=== PATIENT | female | born 1950 | race African-American/Black ===

== ENCOUNTER 2016-07-17 10:28 | Emergency (ER) | payer SELFPAY ==
[2016-07-17] MEDS ORDERED: Lidocaine 1% 20 ML MDV ONE (12:09)
--- NOTE | 2016-07-17 12:49 | ERRECORD ---
[facility] EMERGENCY RECORD HPI ABSCESS (11:29 JLOY) CHIEF COMPLAINT: Patient presents for evaluation of swelling, Patient presents for evaluation of pain, Patient presents for evaluation of Pt with right buttock pain and swelling for 'a few days'. Had a left axillary abscess in the past. Slight chills the last day or two. HISTORIAN: History provided by patient. LOCATION: Symptoms are localized. QUALITY: Pain is dull in nature. TIME COURSE: Gradual onset of symptoms, Symptoms are worsening. ASSOCIATED WITH: Associated with chills, No associated drainage, No associated fever, No associated nausea, No associated proximal streaking, Associated with warmth. COMPLICATING FACTORS: Complicating factors for wound healing include:, patient with history of diabetes. EXACERBATED BY: Patient's condition exacerbated by nothing. RELIEVED BY: Patient's condition relieved by nothing. TETANUS: Tetanus status up to date. ROS (11:30 JLOY) CONSTITUTIONAL: Historian reports chills, denies fever. ENT: Historian denies rhinorrhea, denies sore throat. RESPIRATORY: Historian denies cough, denies shortness of breath. GI: Historian denies abdominal pain, denies nausea, denies vomiting. SKIN: Historian reports cellulitis, reports induration, reports rash. NEUROLOGIC: Historian denies dizziness, denies headache, denies paralysis, denies paresthesias, denies sensory changes. PAST MEDICAL HISTORY MEDICAL HISTORY: Notes: as listed, Flu vaccine up to date, Date of immunization: JUN 2015, Past medical history includes history of diabetes, Type II, diet controlled, Past medical history includes history of hypertension, which has been treated,. (11:05 GHIA) FEMALE SURGICAL HISTORY: Patient has no surgical history, Patient has no surgical history. (11:05 GHIA) PSYCHIATRIC HISTORY: No previous psychiatric history. (11:05 GHIA) SOCIAL HISTORY: Social History includes lives alone, Patient denies alcohol use, Patient denies drug use, Patient has no smoking history, Patient denies alcohol use, Patient denies drug use, Patient has no smoking history,. (11:05 GHIA) NOTES: Nursing records reviewed, Agree with nursing records. (11:32 JLOY) KNOWN ALLERGIES No Known Drug Allergies &a-1R&a+25V*p+0X*[id number]*c202B*c15G*c2P*p-0X&a-25V&a+1R Name: Louann Acuna : 1950 F66 MedRec: [id number] AcctNum: [id number] Prepared: SunJul 17, 2016 12:41 by Interface Page 1 of 3 pMD [facility] EMERGENCY RECORD CURRENT MEDICATIONS No recorded medications VITAL SIGNS VITAL SIGNS: Pulse: 89, Resp: 19, Temp: 100.0 (Oral), Pain: 9, O2 sat: 98, Time: 07/17/2016 11:03. (11:03 GHIA) BP: 208/88, Time: 07/17/2016 11:05. (11:05 GHIA) BP: 150/51, Pulse: 79, Resp: 17, Pain: 9, O2 sat: 100 on RA, Time: 07/17/2016 12:16. (12:16 GHIA) PHYSICAL EXAM (11:31 [facility]) CONSTITUTIONAL: Vital signs reviewed, Patient appears non toxic, Patient alert and oriented to person, place and time. EYES: Eye exam included findings of eyelids normal to inspection, Pupils equally round and reactive to light, Conjunctiva normal. ENT: Mouth exam normal, mucous membranes moist. RESPIRATORY CHEST: Respiratory exam included findings of no respiratory distress, Breath sounds clear, No wheezing, No rales, No rhonchi, Chest exam included findings of chest movement symmetrical. CARDIOVASCULAR: Cardiovascular exam included findings of heart rate regular rate and rhythm, Heart sounds normal. NEURO: [place] coma scale 15, Neuro exam findings include patient oriented to person, place and time, Speech normal. SKIN: Skin exam included findings of skin warm, dry, and normal in color, Right buttock with area on more lateral aspect with induration, erythema, warmth, and ttp. No drainage. Tense without fluctuance. Diameter few cm across with poorly defined border. PSYCHIATRIC: Normal affect. MEDICATION ADMINISTRATION SUMMARY Drug Name: Bactrim DS, Dose Ordered: 1 tab(s), Route: Oral, Status: Ordered, Time: 12:35 07/17/2016, Drug Name: *lidocaine injection, Dose Ordered: 1 vial(s), Route: Subcutaneous, Status: Given, Time: 12:12 07/17/2016, *Additional information available in notes, Detailed record available in Medication Service section. PROBLEM LIST No recorded problems DIAGNOSIS (12:35 [facility]) FINAL: PRIMARY: CARBUNCLE OF BUTTOCK. PRESCRIPTION (12:35 [facility]) Bactrim DS: TABLET : 800 mg-160 mg : ORAL : Quantity: 1 Unit: tab(s) Route: ORAL Schedule: 2 times a day Dispense: 20 May substitute. Refills: No Refills . NOTES: No Refills. &a-1R&a+25V*p+0X*[id number]*c202B*c15G*c2P*p-0X&a-25V&a+1R Name: Louann Acuna Fritz : 1950 F66 MedRec: [id number] AcctNum: [id number] Prepared: SunJul 17, 2016 12:41 by Interface Page 2 of 3 pMD [facility] EMERGENCY RECORD DISPOSITION (12:35 [facility]) PATIENT: Disposition Type: Discharge, Disposition: *Discharge Home. Carrera: RAKEL=JAMAL Sorto, Pamela RODRIGUES=MD Adebayo, Wesley &a-1R&a+25V*p+0X*w2910H*c202B*c15G*c2P*p-0X&a-25V&a+1R Name: Louann Acuna Fritz : 1950 F66 MedRec: [id number] AcctNum: [id number] Prepared: SunJul 17, 2016 12:41 by Interface Page 3 of 3 pMD MTDD
--- NOTE | 2016-07-17 12:49 | PICIS ---
[facility] EMERGENCY RECORD TRIAGE (11:03 GHIA) TRIAGE NOTES: Abscess to right buttock area....no drainage. (11:03 GHIA) PATIENT: NAME: Louann Acuna, AGE: 66, GENDER: female, : Sat 1950, TIME OF GREET: SunJul 17, 2016 10:29, PREFERRED LANGUAGE: Spanish, ETHNICITY: Not or , ECODE BILLING MAP: [facility] ER, SSN: [id number], Zip Code: [address], KG WEIGHT: 68.04, PHONE: , , , PERSON ID: [id number], PCP: [facility]. (11:03 GHIA) COMPLAINT: POSSIBLE ABSCESS ON RIGHT HIP. (11:03 GHIA) ADMISSION: URGENCY: 4 Non Urgent, ADMISSION SOURCE: Home, TRANSPORT: Walk-in, BED: TRIAGE. (11:03 GHIA) ASSESSMENT: Assessment: abscess to right buttock, Symptoms began 2 days. (11:05 GHIA) PAIN: Patient complains of pain described as, Location right buttock, Pain is constant. (11:05 GHIA) IMMUNIZATIONS: Flu vaccine up to date, Tetanus immunization up to date, Pneumococcal vaccine up to date. (11:05 GHIA) SIRS SCORING: Heart Rate 55-109 (0), Temp range 96.8-101.1 (0), respiratory rate 12-24 (0), Mental Status altered: no (0). (11:05 GHIA) TRIAGE SCREENING: Patient denies suicidal ideation, Patient denies presence of domestic violence. 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 (11:05 GHIA) PROVIDERS: TRIAGE NURSE: Pamela Sorto RN. (11:03 GHIA) VITAL SIGNS: Pulse 89, Resp 19, Temp 100.0, (Oral), Pain 9, O2 Sat 98, Time 07/17/2016 11:03. (11:03 GHIA) PREVIOUS VISIT ALLERGIES: No Known Drug Allergies. (11:03 GHIA) No Known Drug Allergies. (11:05 GHIA) KNOWN ALLERGIES No Known Drug Allergies CURRENT MEDICATIONS No recorded medications VITAL SIGNS VITAL SIGNS: Pulse: 89, Resp: 19, Temp: 100.0 (Oral), Pain: 9, O2 sat: 98, Time: 07/17/2016 11:03. (11:03 GHIA) BP: 208/88, Time: 07/17/2016 11:05. (11:05 GHIA) BP: 150/51, Pulse: 79, Resp: 17, Pain: 9, O2 sat: 100 on RA, Time: 07/17/2016 12:16. (12:16 GHIA) BP: 143/51, Pulse: 76, Resp: 17, Pain: 7, O2 sat: 100 on RA, Time: 07/17/2016 12:45. (12:45 GHIA) NURSING PROCEDURE: DISCHARGE NOTE DISCHARGE: Patient discharged to home, ambulating without assistance, patient walking, unaccompanied, Summary of Care printed/ &a-1R&a+25V*p+0X*[id number]*c202B*c15G*c2P*p-0X&a-25V&a+1R Name: Louann Acuna : 1950 F66 MedRec: [id number] AcctNum: [id number] Prepared: SunJul 17, 2016 15:07 by Interface Page 1 of 5 pMD [facility] EMERGENCY RECORD provided, Transition record given to patient, Discharge instructions given to patient, Simple or moderate discharge teaching performed, Prescriptions given and instructions on side effects given, Above person(s) verbalized understanding of discharge instructions and follow-up care. (13:14 GHIA) BELONGINGS: Belongings remain with patient, Valuables remain with patient. (13:14 GHIA) SAFETY: Notes: Pt alert and cheerful; dressing dry and intact. (13:14 GHIA) Notes: Emphasis on discharge for pt to follow up with her primary Dr or return to Er for any concerns. Tylenol/motrin for pain. (13:18 GHIA) NURSING PROCEDURE: NURSE NOTES NURSES NOTES: Notes: Er Dr at bedside. (11:31 GHIA) Notes: Lido pulled and given to Er Dr per VOV. (12:09 GHIA) Patient in no apparent distress, Assistance offered to patient, Notes: Er Dr at bedside; injecting local lido...see his notes for details. (12:16 GHIA) Patient in no apparent distress, Assistance offered to patient, Patient is awaiting disposition, Notes: Procedure completed...see Dr notes for details. (12:45 GHIA) Patient in no apparent distress, Assistance offered to patient, Patient is awaiting disposition, Notes: Pt instructed to get dressed. (12:59 GHIA) VITAL SIGNS: BP: 150, / 51, Pulse: 79, Resp: 17, Pain: 9, O2 sat: 100, on: RA. (12:16 GHIA) BP: 143, / 51, Pulse: 76, Resp: 17, Pain: 7, O2 sat: 100, on: RA. (12:45 GHIA) ORDER DETAILS Order Name: Culture & GS, Bacterial/Wound, Status: Active, Time: 12:37 07/17/2016, User: RAVI, - Ordered for: MD Fiore Joshua, - Entered by: MD Fiore Joshua - SunJul 17, 2016 12:37, - Quantity: 1. MEDICATION ADMINISTRATION SUMMARY Drug Name: Bactrim DS, Dose Ordered: 1 tab(s), Route: Oral, Status: Given, Time: 12:56 07/17/2016, Drug Name: *lidocaine injection, Dose Ordered: 1 vial(s), Route: Subcutaneous, Status: Given, Time: 12:12 07/17/2016, *Additional information available in notes, Detailed record available in Medication Service section. MEDICATION SERVICE Bactrim DS: Order: Bactrim DS (sulfamethoxazole/trimethoprim) - Dose: 1 tab(s) : Oral &a-1R&a+25V*p+0X*f5011K*c202B*c15G*c2P*p-0X&a-25V&a+1R Name: Louann Acuna Fritz : 1950 F66 MedRec: [id number] AcctNum: [id number] Prepared: SunJul 17, 2016 15:07 by Interface Page 2 of 5 pMD [facility] EMERGENCY RECORD Ordered by: Wesley Fiore MD Entered by: Wesley Fiore MD SunJul 17, 2016 12:35 , Acknowledged by: Pamela Sorto RN Sun Jul 17, 2016 12:51 Documented as given by: Pamela Sorto RN [facility] Jul 17, 2016 12:56 Patient, Medication, Dose, Route and Time verified prior to administration. Amount given: 1 tab, Amount wasted: 0, Site: Medication administered P.O., Correct patient, time, route, dose and medication confirmed prior to administration, Patient advised of actions and side-effects prior to administration, Allergies confirmed and medications reviewed prior to administration, Emotional support needed and given, Patient tolerated procedure well, Patient in position of comfort, Side rails up, Cart in lowest position, Call light in reach. lidocaine injection: Order: lidocaine injection (lidocaine HCl) - Dose: 1 vial(s) : Subcutaneous Schedule: Now Notes: VOv Dr Fiore Ordered by: Wesley Fiore MD Entered by: Pamela Sorto RN [facility] Jul 17, 2016 12:12 , Acknowledged by: Pamela Sorto RN [facility] Jul 17, 2016 12:12 Documented as given by: Pamela Sorto RN [facility] Jul 17, 2016 12:12 Patient, Medication, Dose, Route and Time verified prior to administration. Amount given: see Dr notes, Correct patient, time, route, dose and medication confirmed prior to administration, Patient advised of actions and side-effects prior to administration, Allergies confirmed and medications reviewed prior to administration, Emotional support needed and given, Patient tolerated procedure well, Administered by Dr Fiore, Advised not to ambulate without assistance, Patient in position of comfort, Side rails up, Cart in lowest position, Call light in reach, See Dr notes for details of amount and location given. HPI ABSCESS (11:29 JLOY) CHIEF COMPLAINT: Patient presents for evaluation of swelling, Patient presents for evaluation of pain, Patient presents for evaluation of Pt with right buttock pain and swelling for 'a few days'. Had a left axillary abscess in the past. Slight chills the last day or two. HISTORIAN: History provided by patient. LOCATION: Symptoms are localized. QUALITY: Pain is dull in nature. TIME COURSE: Gradual onset of symptoms, Symptoms are worsening. ASSOCIATED WITH: Associated with chills, No associated drainage, No associated fever, No associated nausea, No associated proximal streaking, Associated with warmth. COMPLICATING FACTORS: Complicating factors for wound healing include:, patient with history of diabetes. EXACERBATED BY: Patient's condition exacerbated by nothing. RELIEVED BY: Patient's condition relieved by &a-1R&a+25V*p+0X*l1799I*c202B*c15G*c2P*p-0X&a-25V&a+1R Name: Louann Acuna : 1950 F66 MedRec: [id number] AcctNum: [id number] Prepared: SunJul 17, 2016 15:07 by Interface Page 3 of 5 pMD [facility] EMERGENCY RECORD nothing. TETANUS: Tetanus status up to date. ROS (11:30 JL) CONSTITUTIONAL: Historian reports chills, denies fever. ENT: Historian denies rhinorrhea, denies sore throat. RESPIRATORY: Historian denies cough, denies shortness of breath. GI: Historian denies abdominal pain, denies nausea, denies vomiting. SKIN: Historian reports cellulitis, reports induration, reports rash. NEUROLOGIC: Historian denies dizziness, denies headache, denies paralysis, denies paresthesias, denies sensory changes. PAST MEDICAL HISTORY MEDICAL HISTORY: Notes: as listed, Flu vaccine up to date, Date of immunization: JUN 2015, Past medical history includes history of diabetes, Type II, diet controlled, Past medical history includes history of hypertension, which has been treated,. (11:05 IA) FEMALE SURGICAL HISTORY: Patient has no surgical history, Patient has no surgical history. (11:05 GHIA) PSYCHIATRIC HISTORY: No previous psychiatric history. (11:05 GHIA) SOCIAL HISTORY: Social History includes lives alone, Patient denies alcohol use, Patient denies drug use, Patient has no smoking history, Patient denies alcohol use, Patient denies drug use, Patient has no smoking history,. (11:05 GHIA) NOTES: Nursing records reviewed, Agree with nursing records. (11:32 JLOY) PHYSICAL EXAM (11:31 JL) CONSTITUTIONAL: Vital signs reviewed, Patient appears non toxic, Patient alert and oriented to person, place and time. EYES: Eye exam included findings of eyelids normal to inspection, Pupils equally round and reactive to light, Conjunctiva normal. ENT: Mouth exam normal, mucous membranes moist. RESPIRATORY CHEST: Respiratory exam included findings of no respiratory distress, Breath sounds clear, No wheezing, No rales, No rhonchi, Chest exam included findings of chest movement symmetrical. CARDIOVASCULAR: Cardiovascular exam included findings of heart rate regular rate and rhythm, Heart sounds normal. NEURO: [place] coma scale 15, Neuro exam findings include patient oriented to person, place and time, Speech normal. SKIN: Skin exam included findings of skin warm, dry, and normal in color, Right buttock with area on more lateral aspect with induration, erythema, warmth, and ttp. No drainage. Tense without fluctuance. Diameter few cm across with poorly defined border. PSYCHIATRIC: Normal affect. EVENTS &a-1R&a+25V*p+0X*j8689C*c202B*c15G*c2P*p-0X&a-25V&a+1R Name: Louann Acuna : 1950 F66 MedRec: [id number] AcctNum: [id number] Prepared: SunJul 17, 2016 15:07 by Interface Page 4 of 5 pMD [facility] EMERGENCY RECORD TRANSFER: Triage to Emergency Triage. (SunJul 17, 2016 11:03 GHIA) Emergency Triage to Emergency Room -05. (11:31 GHIA) Removed from Emergency Emergency Room -05. (14:52 GHIA) INCISION AND DRAINAGE (12:36 JLOY) TIMEOUT: Side and/or site verified, Patient identification confirmed, Sterile procedures observed. INCISION AND DRAINAGE: Verbal consent obtained, Incision and drainage indicated for cutaneous abscess, There are no contraindications, 1% Lidocaine without epinephrine used, 15 mLs, Incision and drainage of skin abscess, Location: buttock, simple, Incision was made over area of fluctuance, Explored for loculations, Packed with sterile gauze, Drained pus, Amount (mLs) 10, After procedure, wound dressed, There were no complications, Tetanus status up to date, Patient tolerated the procedure well. PROBLEM LIST No recorded problems DIAGNOSIS (12:35 JLOY) FINAL: PRIMARY: CARBUNCLE OF BUTTOCK. DISPOSITION PATIENT: Disposition Type: Discharge, Disposition: *Discharge Home. (12:35 JLOY) Patient left the department. (14:52 GHIA) INSTRUCTION (12:36 JLOY) DISCHARGE: ABSCESS, I AND D. FOLLOWUP: [facility], Clinic, [address] [place] [address] , , Follow up with Primary Care Physician in 2-3 days. PRESCRIPTION (12:35 [facility]) Bactrim DS: TABLET : 800 mg-160 mg : ORAL : Quantity: 1 Unit: tab(s) Route: ORAL Schedule: 2 times a day Dispense: 20 May substitute. Refills: No Refills . NOTES: No Refills. ADMIN (12:37 [facility]) DIGITAL SIGNATURE: MD Fiore Joshua. Carrera: IA=JAMAL Sorto, Pamela JLOY=MD Fiore Joshua &a-1R&a+25V*p+0X*l5161L*c202B*c15G*c2P*p-0X&a-25V&a+1R Name: Louann Acuna : 1950 F66 MedRec: [id number] AcctNum: [id number] Prepared: SunJul 17, 2016 15:07 by Interface Page 5 of 5 pMD MTDD
[2016-07-17] MEDS ORDERED: Sulfameth/Trimethoprim DS 800-160mg TAB ONE (12:55)
== END 2016-07-17 13:14 | disposition home or self-care (01) ==
LOC: NAV ERS 10:28
DX: L02.33 Carbuncle of buttock (principal); E11.9 Type 2 diabetes mellitus without complications; I10 Essential (primary) hypertension
CPT/HCPCS: 10060; 87070; 87077; 87186; 87205; J2001

== ENCOUNTER 2017-11-01 12:12 | Outpatient (CLI) | payer MEDICARE, OTHER ==
--- NOTE | 2017-11-01 14:35 | RAD ---
TWO VIEWS RIGHT HIP: Date: 11-01-17 Comparison: None. History: Right sided hip pain. FINDINGS: There is mild superior joint space narrowing involving the right hip. There is subchondral sclerosis and osteophyte formation involving the acetabular roof. No displaced fracture or evidence of dislocation is seen. There is a small area of nonspecific soft t issue calcification projecting inferior to the right inferior pubic ramus. IMPRESSION: Degenerative change of the right hip with no acute fracture or dislocation. POS: JAXON
== END 2017-11-01 12:13 | disposition home or self-care (01) ==
LOC: NAV RAD 12:12
PROVIDERS: ATTEND Nurse Practitioner Family
DX: Z13.820 Encounter for screening for osteoporosis (principal); M25.551 Pain in right hip

== ENCOUNTER 2018-06-20 14:44 | Outpatient (CLI) | payer MEDICARE, OTHER ==
--- NOTE | 2018-06-20 15:47 | RAD ---
TWO VIEWS OF THE CHEST: COMPARISON: 12/15/2014. HISTORY: Preoperative clearance for surgery on Sunday. FINDINGS: Two views of the chest show a normal-size cardiomediastinal silhouette with atherosclerotic calcifica tions in the aorta. There is no evidence of consolidation, mass, or pleural effusion. The bones are unremarkable. IMPRESSION: 1. No evidence of acute cardiopulmonary disease. 2. Atherosclerotic disease. POS: TPC
== END 2018-06-20 14:45 | disposition home or self-care (01) ==
LOC: NAV RAD 14:44
PROVIDERS: ATTEND Nurse Practitioner Family
DX: Z01.818 Encounter for other preprocedural examination (principal); I70.0 Atherosclerosis of aorta
CPT/HCPCS: 71046

== ENCOUNTER 2018-07-14 22:25 | Emergency (ER) | payer MEDICARE, OTHER ==
[2018-07-14] MEDS ORDERED: Lidocaine 1% (PF) 30 ML VIAL ONE (22:40)
[2018-07-14] MEDS ORDERED: Sulfameth/Trimethoprim DS 800-160mg TAB ONE (22:50)
== END 2018-07-14 23:01 | disposition home or self-care (01) ==
LOC: NAV ERS 22:25
DX: L02.212 Cutaneous abscess of back [any part, except buttock and flank] (principal); E11.9 Type 2 diabetes mellitus without complications; I10 Essential (primary) hypertension; Z79.84 Long term (current) use of oral hypoglycemic drugs; Z79.82 Long term (current) use of aspirin; Z79.899 Other long term (current) drug therapy
CPT/HCPCS: 10061; J2001

== ENCOUNTER 2020-11-28 23:31 | Emergency (ER) | payer MEDICARE, OTHER ==
[2020-11-29] MEDS ORDERED: Amoxicillin/Potassium Clav 875 MG TAB ONE (00:18)
== END 2020-11-29 00:19 | disposition home or self-care (01) ==
LOC: NAV ERS 23:31
DX: K02.9 Dental caries, unspecified (principal); E11.9 Type 2 diabetes mellitus without complications; I10 Essential (primary) hypertension; Z79.84 Long term (current) use of oral hypoglycemic drugs; Z79.52 Long term (current) use of systemic steroids
CPT/HCPCS: 99282

== ENCOUNTER 2021-01-19 13:13 | Emergency (ER) | payer MEDICARE, OTHER ==
[~2021-01-19 13:13] MED LIST: Iopamidol 370 76% 100 ML VIAL ONE
[2021-01-19 13:47] LABS: Bilirubin Small (Negative); Blood, Urine Trace (Negative); Clarity Clear (Clear); Glucose, Urine (Dipstick) >=1000 mg/dL (Negative); Ketone, Urine 15 mg/dL (Negative); Leukocyte Negative (Negative); Nitrite Negative (Negative); Protein, Urine (Dipstick) 30 mg/dL (Neg-Trace); Specific Gravity, Urine 1.015 (1.005-1.030); Urobilinogen 0.2 mg/dL (Less than 2); pH, Urine 5.5 (5.0-9.0)
[2021-01-19 13:54] LABS: Bacteria/HPF Rare-Few HPF (None Seen); RBC/HPF 0-3 HPF (0-3); WBC/HPF 0-3 HPF (0-3)
[2021-01-19] MEDS ORDERED: Ondansetron PF 4 MG/2 ML Vial ONE (13:59)
[2021-01-19 14:09] LABS: Eosinophils 3 % (0-10); Hemoglobin 12.4 g/dL (12.0-16.0); Lymphocytes 13 % (21-51); MDiff Complete? YES; Mean Corpuscular HGB CONC 30.6 g/dL (32.0-36.0); Mean Corpuscular Hemoglobin 26.5 pg (27.0-31.0); Mean Corpuscular Volume 86.3 fL (78.0-98.0); Mean Platelet Volume 10.4 fL (7.4-10.4); Monocytes 6 % (0-10); Neutrophil 78 % (42-75); Platelet Count 264 thou/uL (130-400); Platelet Morphology Comment Appears Adequate; RBC Distribution Width 14.6 % (11.5-14.5); Red Blood Cell (RBC) Count 4.67 mill/uL (4.20-5.40); White Blood Cell (WBC) Count 10.2 thou/uL (4.8-10.8)
[2021-01-19 15:14] LABS: ALT (SGPT) 14 U/L (8-55); AST (SGOT) 13 U/L (5-34); Albumin 3.8 g/dL (3.4-4.8); Alkaline Phosphatase 92 U/L (40-110); Anion Gap 19 mmol/L (10-20); BUN (Urea Nitrogen) 29 mg/dL (9.8-20.1); Bilirubin, Total 0.7 mg/dL (0.2-1.2); Calc. Creatinine Clearance 0 mL/min (70-130); Carbon Dioxide 18 mmol/L (23-31); Chloride 100 mmol/L (98-107); Globulin 3.8 g/dL (2.4-3.5); Glucose 198 mg/dL (80-115); Lipase 60 U/L (8-78); Potassium 4.6 mmol/L (3.5-5.1); Protein, Total 7.6 g/dL (5.8-8.1); Sodium 132 mmol/L (136-145)
[2021-01-19] MEDS ORDERED: Morphine 4 MG/ML VIAL ONE (15:38)
[2021-01-19] MEDS ORDERED: Sodium Chloride 0.9% 1,000 ML ONE ×2 (15:38→16:19)
[2021-01-19] MEDS ORDERED: Pantoprazole 40 MG VIAL ONE (16:19)
[2021-01-19 16:58] LABS: Lactic Acid 1.4 mmol/L (0.5-2.2)
[2021-01-19] MEDS ORDERED: Piperacillin/Tazobactam 3.375 GM VIAL ONE (17:04)
[2021-01-19] MEDS ORDERED: Sodium Chloride 0.9% 100 ML ONE (17:04)
[2021-01-19] MEDS ORDERED: Acetaminophen 500 MG TAB ONE (17:04)
[2021-01-20] MEDS ORDERED: Acetaminophen 500 MG TAB ONE (07:40)
[2021-01-20 08:04] LABS: #Basophils 0.1 thou/uL (0.0-0.2); #Eosinphils 0.1 thou/uL (0.0-0.7); #Lymphocytes 1.1 thou/uL (1.20-3.40); #Neutrophils 5.8 thou/uL (1.40-6.50); %Basophils 1.4 % (0.0-1.0); %Eosinophils 0.8 % (0.0-10.0); %Lymphocytes 13.4 % (21.0-51.0); %Monocytes 12.6 % (0.0-10.0); %Neutrophils 71.8 % (42.0-75.0); Mean Corpuscular HGB CONC 31.3 g/dL (32.0-36.0); Mean Corpuscular Volume 86.3 fL (78.0-98.0); Mean Platelet Volume 9.3 fL (7.4-10.4); Platelet Count 177 thou/uL (130-400); RBC Distribution Width 14.5 % (11.5-14.5); Red Blood Cell (RBC) Count 3.72 mill/uL (4.20-5.40)
[2021-01-20 08:13] LABS: Anion Gap 11 mmol/L (10-20); BUN (Urea Nitrogen) 26 mg/dL (9.8-20.1); Calc. Creatinine Clearance 0 mL/min (70-130); Carbon Dioxide 20 mmol/L (23-31); Chloride 105 mmol/L (98-107); Glucose 181 mg/dL (80-115); Potassium 4.4 mmol/L (3.5-5.1); Sodium 132 mmol/L (136-145)
== END 2021-01-20 08:43 | disposition home or self-care (01) ==
LOC: NAV ERS 13:13
DX: N17.9 Acute kidney failure, unspecified (principal); E86.0 Dehydration; I10 Essential (primary) hypertension; E11.9 Type 2 diabetes mellitus without complications; Z79.84 Long term (current) use of oral hypoglycemic drugs; Z79.899 Other long term (current) drug therapy
CPT/HCPCS: 71045; 74177; 80048; 80053; 81003; 81015; 83605; 83690; 84484; 85025; 93005; 94760; 96365; 96375; C9113; J2270; J2405; J2543; J3490; J7050; Q9967

== ENCOUNTER 2021-06-06 18:26 | Emergency (ER) | payer MEDICARE, OTHER ==
[2021-06-06] MEDS ORDERED: Acetaminophen/Codeine 30-300mg Tablet ONE (19:56)
[2021-06-06] MEDS ORDERED: valACYclovir 500 MG TAB ONE ×2 (19:56→19:57)
[2021-06-06] MEDS ORDERED: Ondansetron ODT 4 MG TAB ONE (19:58)
== END 2021-06-06 20:15 | disposition home or self-care (01) ==
LOC: NAV ERS 18:26
DX: B02.9 Zoster without complications (principal); I10 Essential (primary) hypertension; E11.9 Type 2 diabetes mellitus without complications; Z79.4 Long term (current) use of insulin; Z79.899 Other long term (current) drug therapy
CPT/HCPCS: 99283; Q0162

== ENCOUNTER 2023-02-06 19:13 | Emergency (ER) | payer OTHER ==
[2023-02-06] MEDS ORDERED: Acetaminophen 500 MG TAB ONE (19:38)
== END 2023-02-06 20:30 | disposition home or self-care (01) ==
LOC: NAV ERS 19:13
DX: S46.912A Strain of unspecified muscle, fascia and tendon at shoulder and upper arm level, left arm, initial encounter (principal); E11.9 Type 2 diabetes mellitus without complications; I10 Essential (primary) hypertension; Z79.84 Long term (current) use of oral hypoglycemic drugs; Z79.899 Other long term (current) drug therapy; X58.XXXA Exposure to other specified factors, initial encounter
CPT/HCPCS: 93005

== ENCOUNTER 2024-01-06 14:07 | Emergency (ER) | payer OTHER ==
[2024-01-06] MEDS ORDERED: Acetaminophen 500 MG TAB ONE (14:33)
[2024-01-06] MEDS ORDERED: cloNIDine 0.1 MG TAB ONE (14:33)
[2024-01-06] MEDS ORDERED: Metoprolol Tartrate 25 MG TAB ONE (14:33)
[2024-01-06 15:02] LABS: #Basophils 0.1 thou/uL (0.0-0.2); #Eosinphils 0.2 thou/uL (0.0-0.7); #Lymphocytes 1.6 thou/uL (1.20-3.40); #Monocytes 0.6 thou/uL (0.11-0.59); #Neutrophils 4.8 thou/uL (1.40-6.50); %Basophils 1.7 % (0.0-1.0); %Eosinophils 2.8 % (0.0-10.0); %Lymphocytes 21.7 % (21.0-51.0); %Monocytes 8.3 % (0.0-10.0); %Neutrophils 65.6 % (42.0-75.0); Hematocrit 36.8 % (36.0-47.0); Hemoglobin 11.1 g/dL (12.0-16.0); Mean Corpuscular HGB CONC 30.2 g/dL (32.0-36.0); Mean Corpuscular Hemoglobin 25.2 pg (27.0-31.0); Mean Corpuscular Volume 83.2 fl (78.0-98.0); Mean Platelet Volume 9.5 fL (7.4-10.4); Platelet Count 267 10x3/uL (130-400); RBC Distribution Width 15.4 % (11.5-14.5); Red Blood Cell (RBC) Count 4.42 mill/uL (4.20-5.40); White Blood Cell (WBC) Count 7.3 10x3/uL (4.8-10.8)
[2024-01-06 15:09] LABS: Bilirubin Negative (Negative); Blood, Urine Small (Negative); Clarity Hazy (Clear); Glucose, Urine (Dipstick) >=1000 mg/dL (Negative); Ketone, Urine Negative (Negative); Leukocyte Negative (Negative); Nitrite Negative (Negative); Protein, Urine (Dipstick) > or equal to 300 mg/dL (Neg-Trace); Urobilinogen 0.2 mg/dL (Less than 2)
[2024-01-06 15:10] LABS: Urine Culture Reflex No No
[2024-01-06 15:12] LABS: ALT (SGPT) 67 U/L (8-55); AST (SGOT) 28 U/L (5-34); Albumin 3.5 g/dL (3.4-4.8); Alkaline Phosphatase 206 U/L (40-110); Anion Gap 18 mmol/L (10-20); BUN (Urea Nitrogen) 18 mg/dL (9.8-20.1); Bilirubin, Total 0.3 mg/dL (0.2-1.2); Calc. Creatinine Clearance 0 mL/min (70-130); Calcium 9.5 mg/dL (7.8-10.44); Carbon Dioxide 20 mmol/L (23-31); Chloride 106 mmol/L (98-107); Estimated GFR 50; Globulin 3.8 g/dL (2.4-3.5); Glucose 125 mg/dL (83-110); Potassium 4.6 mmol/L (3.5-5.1); Protein, Total 7.3 g/dL (5.8-8.1); Sodium 139 mmol/L (136-145); Troponin I 0.012 ng/mL (< 0.028)
[2024-01-06 15:21] LABS: Bacteria/HPF 2+ HPF (None Seen); CAUTI Indications for Culture Dysuria,urgency,freq; Squamous Epithelial 0-3 HPF (0-3)
[2024-01-06] MEDS ORDERED: Ketorolac Tromethamine 30 MG (1 mL) VIAL ONE (15:54)
[2024-01-06] MEDS ORDERED: Cephalexin 250 MG CAP ONE (15:54)
== END 2024-01-06 17:15 | disposition home or self-care (01) ==
LOC: NAV ERS 14:07
DX: I10 Essential (primary) hypertension (principal); N39.0 Urinary tract infection, site not specified; E11.9 Type 2 diabetes mellitus without complications; Z79.899 Other long term (current) drug therapy; Z79.84 Long term (current) use of oral hypoglycemic drugs
CPT/HCPCS: 70450; 71045; 80053; 81001; 84443; 84484; 85025; 96374; J1885